=== PATIENT | female | born 1950 | race Caucasian/White ===

== ENCOUNTER 2023-01-21 08:02 | Inpatient (IN) | payer MEDICARE, MEDICAID ==
[~2023-01-21] VITALS: Ht 152.4 cm; Wt 93.0 kg
[2023-01-21] MEDS ORDERED: ALBUTEROL (0.083%) 2.5MG/3ML NEB HHN STA (08:07)
[2023-01-21] MEDS ORDERED: METHYLPREDNISOLONE SOD SUCC 125 MG/2 ML VIAL IV STA (08:07)
[2023-01-21] MEDS ORDERED: IPRATROPIUM BROMIDE (0.02%) 0.5MG/2.5ML NEB HHN STA (08:07)
[2023-01-21] MEDS ORDERED: MAGNESIUM 2 G PREMIX 50 ML IV ONE (08:15)
[2023-01-21 08:28] LABS: BG BASE EXCESS -4.2 mmol/L (-2.0-2.0); BG CARBOXYHEMOGLOBIN 0.3 % (0.5-1.5); BG DEOXYHEMOGLOBIN 0.4 % (0.0-5.0); BG FRACTION INSPIRED OXYGEN 100; BG METHEMOGLOBIN 0.7 % (0.0-1.5); BG OXYGEN SATURATION 99.6 % (92.0-98.5); BG OXYHEMOGLOBIN 98.6 % (94.0-97.0); BG PCO2 72.5 mmHg (35.0-45.0); BG PH 7.172 (7.350-7.450); BG PO2 318.6 mmHg (75.0-100.0); BG SAMPLE SITE LEFT RADIAL; BG TOTAL HEMOGLOBIN 14.3 g/dL (12.0-18.0); BG TOTAL RESPIRATORY RATE 35 b/min; BG VENT MODE MASK - BIPAP
[2023-01-21 08:37] LABS: CHLORIDE 101 mEq/L (98-107)
[2023-01-21 09:12] LABS: BASOPHILS % 0.5 % (0.0-2.0); EOSINOPHILS % 0.5 % (0.0-5.0); HEMATOCRIT. 40.1 % (36.0-48.0); HEMOGLOBIN. 13.3 g/dL (12.0-16.0); LYMPHOCYTES % 39.9 % (20.0-50.0); MEAN CORPUSCULAR HEMOGLOBIN 30.3 pg (28.0-32.0); MEAN CORPUSCULAR VOLUME 91.8 fL (81.0-99.0); MEAN PLATELET VOLUME 9.1 fl (7.4-10.4); MONOCYTES % 9.7 % (2.0-8.0); NEUTROPHILS % 49.4 % (40.0-76.0); PLATELET 241 x1000/uL (130-400); RED BLOOD CELL COUNT 4.37 mill/uL (4.2-5.4); RED CELL DISTRIBUTION WIDTH 14.1 % (11.6-14.6)
[2023-01-21] MEDS ORDERED: AZITHROMYCIN 500MG/250ML 250 ML IV ONE (09:15)
[2023-01-21] MEDS ORDERED: CEFTRIAXONE 1GM PREMIX 50 ML IV ONE (09:15)
[2023-01-21 10:49] LABS: BG BASE EXCESS -0.7 mmol/L (-2.0-2.0); BG CARBOXYHEMOGLOBIN 0.8 % (0.5-1.5); BG DEOXYHEMOGLOBIN 5.8 % (0.0-5.0); BG FRACTION INSPIRED OXYGEN 60; BG METHEMOGLOBIN 0.6 % (0.0-1.5); BG OXYGEN SATURATION 94.1 % (92.0-98.5); BG OXYHEMOGLOBIN 92.8 % (94.0-97.0); BG PCO2 63.9 mmHg (35.0-45.0); BG PO2 80.2 mmHg (75.0-100.0); BG SAMPLE SITE LEFT RADIAL; BG TOTAL HEMOGLOBIN 14.9 g/dL (12.0-18.0); BG TOTAL RESPIRATORY RATE 38 b/min; BG VENT MODE MASK - BIPAP
[2023-01-21] MEDS ORDERED: NOREPINEPHRINE 8MG/250ML PMX 250 ML IV ONE (11:00)
[2023-01-21] MEDS ORDERED: LIDOCAINE HCL/PF 1% 10 MG/ML 5ML VIAL ONE (11:06)
[2023-01-21] MEDS ORDERED: HEPARIN 1000 UNITS/ML 10ML ONE (11:07)
[2023-01-21] MEDS ORDERED: SODIUM CHLORIDE 0.9% 1,000 ML IV ONE (11:15)
[2023-01-21] MEDS ORDERED: DEXTROSE 50% WATER 50ML SYRINGE IV PRN (13:00)
[2023-01-21] MEDS ORDERED: IPRATROPIUM/ALBUTEROL 0.5-3(2.5)MG/3ML NEB HHN SCH (13:00)
[2023-01-21] MEDS ORDERED: CLONIDINE 0.1MG TABLET PO PRN (13:00)
[2023-01-21] MEDS ORDERED: DOCUSATE SODIUM 100MG CAPSULE PO PRN (13:00)
[2023-01-21] MEDS ORDERED: NA PHOS,M-B/NA PHOS,DI-BA ENEMA 118ML PR PRN (13:00)
[2023-01-21] MEDS ORDERED: MAGNESIUM/ALUMINUM HYDROXIDE/SIMETHICONE 30ML UDC PO PRN (13:00)
[2023-01-21] MEDS ORDERED: GUAIFENESIN 200MG/10ML SUGAR FREE UDC PO PRN (13:00)
[2023-01-21] MEDS ORDERED: ONDANSETRON HCL 4MG/2ML INJ IV PRN (13:00)
[2023-01-21] MEDS ORDERED: ACETAMINOPHEN 325MG TABLET PO PRN (13:00)
[2023-01-21] MEDS: LOSARTAN POTASSIUM 50 MG TABLET PO SCH (13:15)
[2023-01-21] MEDS: INSULIN LISPRO 100 UNITS/ML SUBCUT SCH ×3 (13:20→22:52)
[2023-01-21] MEDS ORDERED: IPRATROPIUM BROMIDE (0.02%) 0.5MG/2.5ML NEB HHN PRN (13:45)
[2023-01-21] MEDS: SODIUM CHLORIDE 0.9% 1,000 ML IV SCH (13:46)
[2023-01-21] MEDS: BLOOD SUGAR DIAGNOSTIC STRIP TEST SCH ×3 (13:46→22:53)
[2023-01-21] MEDS: METHYLPREDNISOLONE SOD SUCC 125 MG/2 ML VIAL IV SCH ×2 (13:48→18:51)
[2023-01-21] MEDS: IPRATROPIUM BROMIDE (0.02%) 0.5MG/2.5ML NEB HHN SCH ×2 (14:52→20:39)
[2023-01-21] MEDS: BUDESONIDE 0.5MG/2ML NEB HHN SCH ×2 (14:52→20:38)
[2023-01-21 15:44] LABS: D-DIMER 21.65 mg/L FEU (<0.50); INR 1.1; PROTHROMBIN TIME 11.7 sec (9.6-11.0)
[2023-01-21 15:53] LABS: T4 FREE 1.18 ng/dL (0.76-1.46)
[2023-01-21 16:19] LABS: FOLIC ACID (FOLATE) SERUM 18.7 ng/mL (>5.38)
[2023-01-21] MEDS: ENOXAPARIN 30MG/0.3ML SYR SUBCUT SCH (18:52)
[2023-01-21] MEDS: FAMOTIDINE 20MG TABLET PO SCH (22:52)
[2023-01-21] MEDS: ATORVASTATIN CALCIUM 40MG TABLET PO SCH (23:06)
[2023-01-22] VITALS (10 sets, daily range): BP systolic 119–157; BP diastolic 36–97
[2023-01-22] MEDS: IPRATROPIUM BROMIDE (0.02%) 0.5MG/2.5ML NEB HHN SCH ×7 (00:44→23:43)
[2023-01-22] MEDS: BLOOD SUGAR DIAGNOSTIC STRIP TEST SCH ×4 (06:30→20:05)
[2023-01-22] MEDS: SODIUM CHLORIDE 0.9% 1,000 ML IV SCH (06:33)
[2023-01-22] MEDS: ENOXAPARIN 30MG/0.3ML SYR SUBCUT SCH ×2 (06:33→17:01)
[2023-01-22] MEDS: METHYLPREDNISOLONE SOD SUCC 125 MG/2 ML VIAL IV SCH ×4 (06:34→22:54)
[2023-01-22] MEDS: INSULIN LISPRO 100 UNITS/ML SUBCUT SCH ×4 (07:00→20:09)
[2023-01-22] MEDS ORDERED: LIDOCAINE HCL/PF 1% 2ML VIAL ONE (07:00)
[2023-01-22 08:33] LABS: BG BASE EXCESS -3.5 mmol/L (-2.0-2.0); BG CARBOXYHEMOGLOBIN 0.4 % (0.5-1.5); BG HCO3 ACT 23.4 mmol/L (22.0-26.0); BG METHEMOGLOBIN 0.3 % (0.0-1.5); BG OXYGEN SATURATION 91.9 % (92.0-98.5); BG OXYHEMOGLOBIN 91.3 % (94.0-97.0); BG PCO2 49.7 mmHg (35.0-45.0); BG PH 7.291 (7.350-7.450); BG PO2 68.9 mmHg (75.0-100.0); BG SAMPLE SITE RIGHT RADIAL; BG TOTAL HEMOGLOBIN 13.3 g/dL (12.0-18.0); BG VENT MODE MASK - BIPAP
[2023-01-22] MEDS ORDERED: AZITHROMYCIN 500 MG in DEXT 5% WATER 250 ML IV SCH (09:00)
[2023-01-22] MEDS: BUDESONIDE 0.5MG/2ML NEB HHN SCH ×2 (09:16→20:16)
[2023-01-22 09:22] LABS: BASOPHILS % 0.1 % (0.0-2.0); HEMATOCRIT. 37.4 % (36.0-48.0); HEMOGLOBIN. 12.3 g/dL (12.0-16.0); LYMPHOCYTES % 18.7 % (20.0-50.0); MEAN PLATELET VOLUME 8.9 fl (7.4-10.4); MONOCYTES % 4.8 % (2.0-8.0); NEUTROPHILS % 76.4 % (40.0-76.0); PLATELET 177 x1000/uL (130-400); RED BLOOD CELL COUNT 4.11 mill/uL (4.2-5.4); RED CELL DISTRIBUTION WIDTH 14.1 % (11.6-14.6)
[2023-01-22 09:31] LABS: CHLORIDE 105 mEq/L (98-107)
[2023-01-22] MEDS: ASPIRIN 81MG EC TABLET PO SCH (09:38)
[2023-01-22] MEDS: LOSARTAN POTASSIUM 50 MG TABLET PO SCH (09:38)
[2023-01-22] MEDS ORDERED: FUROSEMIDE 40MG/4ML VIAL IVP NR (09:45)
[2023-01-22] MEDS ORDERED: CEFTRIAXONE 1GM PREMIX 50 ML IV SCH (11:00)
[2023-01-22] MEDS: AZITHROMYCIN 500 MG in DEXT 5% WATER 250 ML IV SCH (12:15)
[2023-01-22] MEDS: CEFTRIAXONE 1GM PREMIX 50 ML IV SCH (12:43)
[2023-01-22 14:24] LABS: BG CARBOXYHEMOGLOBIN 0.7 % (0.5-1.5); BG DEOXYHEMOGLOBIN 8.4 % (0.0-5.0); BG HCO3 ACT 30.8 mmol/L (22.0-26.0); BG METHEMOGLOBIN 0.3 % (0.0-1.5); BG OXYGEN SATURATION 91.5 % (92.0-98.5); BG OXYHEMOGLOBIN 90.6 % (94.0-97.0); BG PCO2 61.3 mmHg (35.0-45.0); BG PH 7.319 (7.350-7.450); BG PO2 61.9 mmHg (75.0-100.0); BG SAMPLE SITE RIGHT RADIAL; BG VENT MODE NASAL CANNULA
[2023-01-22] MEDS ORDERED: FUROSEMIDE 40MG/4ML VIAL IVP SCH (17:00)
[2023-01-22] MEDS: FAMOTIDINE 20MG TABLET PO SCH (20:03)
[2023-01-22] MEDS: ACETAMINOPHEN 325MG TABLET PO PRN (20:03)
[2023-01-22] MEDS: ATORVASTATIN CALCIUM 40MG TABLET PO SCH (20:03)
[2023-01-23] VITALS (11 sets, daily range): BP systolic 120–163; BP diastolic 56–83
[2023-01-23] MEDS ORDERED: IOHEXOL-350 100 ML BOTTLE ONE (01:17)
[2023-01-23] MEDS: IPRATROPIUM BROMIDE (0.02%) 0.5MG/2.5ML NEB HHN SCH ×4 (04:49→21:54)
[2023-01-23 05:31] LABS: HEMATOCRIT. 35.8 % (36.0-48.0); HEMOGLOBIN. 12.1 g/dL (12.0-16.0); LYMPHOCYTES % 13.9 % (20.0-50.0); MEAN CORPUSCULAR HEMOGLOBIN 30.5 pg (28.0-32.0); MEAN PLATELET VOLUME 9.2 fl (7.4-10.4); MONOCYTES % 4.1 % (2.0-8.0); PLATELET 187 x1000/uL (130-400); RED BLOOD CELL COUNT 3.98 mill/uL (4.2-5.4); RED CELL DISTRIBUTION WIDTH 13.8 % (11.6-14.6)
[2023-01-23 06:04] LABS: CHLORIDE 102 mEq/L (98-107)
[2023-01-23] MEDS: ENOXAPARIN 30MG/0.3ML SYR SUBCUT SCH ×2 (06:22→17:10)
[2023-01-23] MEDS: METHYLPREDNISOLONE SOD SUCC 125 MG/2 ML VIAL IV SCH ×3 (06:22→20:51)
[2023-01-23] MEDS: BLOOD SUGAR DIAGNOSTIC STRIP TEST SCH ×5 (06:23→20:51)
[2023-01-23] MEDS: INSULIN LISPRO 100 UNITS/ML SUBCUT SCH ×4 (06:23→20:55)
[2023-01-23 06:27] LABS: PHOSPHORUS 3.9 mg/dL (2.5-4.9)
[2023-01-23 08:32] LABS: BG CARBOXYHEMOGLOBIN 0.5 % (0.5-1.5); BG DEOXYHEMOGLOBIN 6.6 % (0.0-5.0); BG FRACTION INSPIRED OXYGEN 32; BG HCO3 ACT 34.4 mmol/L (22.0-26.0); BG METHEMOGLOBIN 0.3 % (0.0-1.5); BG OXYGEN SATURATION 93.3 % (92.0-98.5); BG OXYHEMOGLOBIN 92.6 % (94.0-97.0); BG PCO2 61.1 mmHg (35.0-45.0); BG PH 7.368 (7.350-7.450); BG PO2 69.8 mmHg (75.0-100.0); BG SAMPLE SITE LEFT RADIAL; BG TOTAL HEMOGLOBIN 13.6 g/dL (12.0-18.0); BG VENT MODE NASAL CANNULA
[2023-01-23] MEDS: BUDESONIDE 0.5MG/2ML NEB HHN SCH ×2 (08:50→21:54)
[2023-01-23] MEDS: AZITHROMYCIN 500 MG in DEXT 5% WATER 250 ML IV SCH (12:10)
[2023-01-23] MEDS: FUROSEMIDE 40MG/4ML VIAL IVP SCH (12:12)
[2023-01-23] MEDS: CEFTRIAXONE 1GM PREMIX 50 ML IV SCH (12:12)
[2023-01-23] MEDS: HYDRALAZINE 20MG/ML VIAL IV SCH ×3 (12:13→23:53)
[2023-01-23] MEDS: ASPIRIN 81MG EC TABLET PO SCH (12:13)
[2023-01-23] MEDS: LOSARTAN POTASSIUM 50 MG TABLET PO SCH (12:13)
[2023-01-23] MEDS: ACETAMINOPHEN 325MG TABLET PO PRN (13:41)
[2023-01-23] MEDS: ATORVASTATIN CALCIUM 40MG TABLET PO SCH (20:50)
[2023-01-23] MEDS: FAMOTIDINE 20MG TABLET PO SCH (20:50)
[2023-01-24] VITALS: BP_SYST 146; BP_SYST 147; BP_DIAS 65; BP_DIAS 69
[2023-01-24] MEDS: IPRATROPIUM BROMIDE (0.02%) 0.5MG/2.5ML NEB HHN SCH ×4 (00:39→12:55)
[2023-01-24 04:00] VITALS: BP 137/51
[2023-01-24] MEDS: BLOOD SUGAR DIAGNOSTIC STRIP TEST SCH ×4 (05:38→21:00)
[2023-01-24] MEDS: ENOXAPARIN 30MG/0.3ML SYR SUBCUT SCH ×2 (05:38→17:20)
[2023-01-24] MEDS: METHYLPREDNISOLONE SOD SUCC 125 MG/2 ML VIAL IV SCH (05:38)
[2023-01-24] MEDS: HYDRALAZINE 20MG/ML VIAL IV SCH ×3 (05:38→17:20)
[2023-01-24] MEDS: INSULIN LISPRO 100 UNITS/ML SUBCUT SCH ×4 (05:40→21:00)
[2023-01-24 06:08] LABS: HEMATOCRIT. 38.2 % (36.0-48.0); HEMOGLOBIN. 12.7 g/dL (12.0-16.0); LYMPHOCYTES % 12.2 % (20.0-50.0); MEAN CORPUSCULAR VOLUME 90.5 fL (81.0-99.0); MEAN PLATELET VOLUME 9.4 fl (7.4-10.4); MONOCYTES % 4.7 % (2.0-8.0); NEUTROPHILS % 83.1 % (40.0-76.0); PLATELET 220 x1000/uL (130-400); RED BLOOD CELL COUNT 4.22 mill/uL (4.2-5.4); RED CELL DISTRIBUTION WIDTH 13.7 % (11.6-14.6)
[2023-01-24 08:00] VITALS: BP 136/56
[2023-01-24 08:06] LABS: CHLORIDE 101 mEq/L (98-107)
[2023-01-24] MEDS: FUROSEMIDE 40MG/4ML VIAL IVP SCH (08:38)
[2023-01-24] MEDS: LOSARTAN POTASSIUM 50 MG TABLET PO SCH (08:39)
[2023-01-24] MEDS: ASPIRIN 81MG EC TABLET PO SCH (08:39)
[2023-01-24] MEDS: BUDESONIDE 0.5MG/2ML NEB HHN SCH ×2 (09:15→21:06)
[2023-01-24 11:56] VITALS: BP 143/51
[2023-01-24] MEDS ORDERED: POTASSIUM CHLORIDE 20MEQ TABLET SR PO NR (12:30)
[2023-01-24] MEDS: FUROSEMIDE 20MG TABLET PO SCH (12:36)
[2023-01-24] MEDS: AZITHROMYCIN 500 MG TABLET PO SCH (12:36)
[2023-01-24] MEDS: CEFTRIAXONE 1GM PREMIX 50 ML IV SCH (12:37)
[2023-01-24] MEDS ORDERED: IPRATROPIUM/ALBUTEROL 0.5-3(2.5)MG/3ML NEB HHN PRN (15:45)
[2023-01-24 16:00] VITALS: BP 127/56
[2023-01-24] MEDS: METHYLPREDNISOLONE SOD SUCC 40 MG/ML VIAL IV SCH (17:20)
[2023-01-24 20:00] VITALS: BP 135/57
[2023-01-24] MEDS: IPRATROPIUM/ALBUTEROL 0.5-3(2.5)MG/3ML NEB HHN SCH (21:06)
[2023-01-24] MEDS: GUAIFENESIN 600MG ER TABLET PO SCH (22:45)
[2023-01-24] MEDS: ATORVASTATIN CALCIUM 40MG TABLET PO SCH (22:45)
[2023-01-24] MEDS: FAMOTIDINE 20MG TABLET PO SCH (22:45)
[2023-01-25] VITALS: BP 141/66
[2023-01-25] MEDS: HYDRALAZINE 20MG/ML VIAL IV SCH ×3 (00:57→12:10)
[2023-01-25] MEDS: IPRATROPIUM/ALBUTEROL 0.5-3(2.5)MG/3ML NEB HHN SCH ×2 (02:02→09:22)
[2023-01-25 04:00] VITALS: BP 113/49
[2023-01-25 06:09] LABS: BASOPHILS % 0.2 % (0.0-2.0); HEMATOCRIT. 36.7 % (36.0-48.0); HEMOGLOBIN. 12.6 g/dL (12.0-16.0); LYMPHOCYTES % 13.6 % (20.0-50.0); MEAN CORPUSCULAR HEMOGLOBIN 30.3 pg (28.0-32.0); MEAN CORPUSCULAR VOLUME 88.4 fL (81.0-99.0); MEAN PLATELET VOLUME 9.6 fl (7.4-10.4); MONOCYTES % 8.6 % (2.0-8.0); NEUTROPHILS % 77.6 % (40.0-76.0); PLATELET 216 x1000/uL (130-400); RED BLOOD CELL COUNT 4.15 mill/uL (4.2-5.4); RED CELL DISTRIBUTION WIDTH 14.1 % (11.6-14.6)
[2023-01-25] MEDS: ENOXAPARIN 30MG/0.3ML SYR SUBCUT SCH (06:37)
[2023-01-25] MEDS: BLOOD SUGAR DIAGNOSTIC STRIP TEST SCH ×2 (07:08→12:02)
[2023-01-25 08:00] VITALS: BP 139/57
[2023-01-25] MEDS: METHYLPREDNISOLONE SOD SUCC 40 MG/ML VIAL IV SCH (08:16)
[2023-01-25] MEDS: LOSARTAN POTASSIUM 50 MG TABLET PO SCH (08:16)
[2023-01-25] MEDS: FUROSEMIDE 20MG TABLET PO SCH (08:16)
[2023-01-25] MEDS: GUAIFENESIN 600MG ER TABLET PO SCH (08:17)
[2023-01-25] MEDS: ASPIRIN 81MG EC TABLET PO SCH (08:17)
[2023-01-25] MEDS: AZITHROMYCIN 500 MG TABLET PO SCH (08:17)
[2023-01-25] MEDS: INSULIN LISPRO 100 UNITS/ML SUBCUT SCH ×2 (08:18→12:11)
[2023-01-25 08:44] LABS: CHLORIDE 103 mEq/L (98-107)
[2023-01-25] MEDS ORDERED: LIP40 PO (09:13)
[2023-01-25] MEDS ORDERED: GUAI600T44 PO (09:13)
[2023-01-25] MEDS ORDERED: FURO20TA4 PO (09:13)
[2023-01-25] MEDS ORDERED: LOSA50TA3 PO (09:13)
[2023-01-25] MEDS ORDERED: ASPI-1406 PO (09:13)
[2023-01-25] MEDS: BUDESONIDE 0.5MG/2ML NEB HHN SCH (09:26)
[2023-01-25 10:21] VITALS: BP_SYST 125; BP_SYST 139; BP_DIAS 44; BP_DIAS 57
[2023-01-25 12:00] VITALS: BP 125/44
[2023-01-25] MEDS: CEFTRIAXONE 1GM PREMIX 50 ML IV SCH (12:10)
== END 2023-01-25 16:44 | disposition home or self-care (01) | DRG 193 ==
LOC: ER 08:21 → MICUSO 13:07 → MICUNO 01-22 03:30 → 7WST 01-23 16:48
PROVIDERS: ADMIT Internal Medicine; ATTEND Internal Medicine
PROC: 5A09457 Assistance with Respiratory Ventilation, 24-96 Consecutive Hours, Continuous Positive Airway Pressure (ICD-10-PCS; principal; 2023-01-21)
PROC: 5A09357 Assistance with Respiratory Ventilation, Less than 24 Consecutive Hours, Continuous Positive Airway Pressure (ICD-10-PCS; 2023-01-22)
PROC: 5A09357 Assistance with Respiratory Ventilation, Less than 24 Consecutive Hours, Continuous Positive Airway Pressure (ICD-10-PCS; 2023-01-23)
DX: J18.9 Pneumonia, unspecified organism (principal); I50.33 Acute on chronic diastolic (congestive) heart failure; J96.01 Acute respiratory failure with hypoxia; J96.02 Acute respiratory failure with hypercapnia; E44.1 Mild protein-calorie malnutrition; E87.29 Other acidosis; Z68.41 Body mass index [BMI] 40.0-44.9, adult; J45.901 Unspecified asthma with (acute) exacerbation; J98.11 Atelectasis; J91.8 Pleural effusion in other conditions classified elsewhere; I11.0 Hypertensive heart disease with heart failure; E11.65 Type 2 diabetes mellitus with hyperglycemia; E78.00 Pure hypercholesterolemia, unspecified; G47.33 Obstructive sleep apnea (adult) (pediatric); Z20.822 Contact with and (suspected) exposure to COVID-19; K76.0 Fatty (change of) liver, not elsewhere classified; E78.5 Hyperlipidemia, unspecified; Z79.899 Other long term (current) drug therapy; Z86.711 Personal history of pulmonary embolism; Z95.5 Presence of coronary angioplasty implant and graft
CPT/HCPCS: 36415; 36600; 71045; 71275; 76604; 76700; 80048; 80053; 80061; 82375; 82607; 82746; 82805; 82962; 83036; 83605; 83735; 83880; 84100; 84145; 84439; 84443; 84484; 85025; 85379; 87426; 87804; 93005; 93306; 93970; 94640; 94660; 97162; 97166; 99291; C9803; J0360; J0456; J0696; J1644; J1650; J1815; J1940; J2920; J2930; J3475; J3490; J7030; J7060; J7626; Q9967